=== PATIENT | female | born 1970 | race Two or more races ===

== ENCOUNTER 2019-06-23 23:02 | Emergency (ER) | payer MEDICAID ==
[~2019-06-23] VITALS: Ht 165.1 cm; Wt 83.9 kg
--- NOTE | 2019-06-23 23:20 | NUR ---
ED Nurse Note: Pt walked in to ER due to left ankle pain s/p fall. Pt stated she was walking and rolled her ankled inwards on 06/18. Pt stated 02/02 pain. LT ankle swollen, bruised, pain on touch. No SOB. VSS. Accompanied by .
--- NOTE | 2019-06-24 00:15 | NUR ---
ED Nurse Note: Xray done at bedside.
--- NOTE | 2019-06-24 01:06 | Diagnostic Imaging Report ---
Indication: Foot pain Comparison: None Findings: 3 views of the left foot were obtained. No acute fractures, malalignment, erosions or periostitis are identified. Soft tissues are unremarkable. Impression: No acute findings
--- NOTE | 2019-06-24 01:06 | Diagnostic Imaging Report ---
Indication: left ankle pain Comparison: None Findings: 3 views of the left ankle obtained. Soft tissues are unremarkable. No acute fracture, malalignment, periostitis, or osteochondral defects are identified. There is a plantar calcaneal spur present. Impression: No acute findings
[2019-06-24] MEDS ORDERED: NAPROXEN250 MG ORAL (01:27)
--- NOTE | 2019-06-24 01:27 | Emergency Room Report ---
History of Present Illness General Chief Complaint: Lower Extremity Injury Source: Patient Present Illness HPI 48-year-old female presents with sharp ankle pain after stepping in a pothole, she endorses pain with movement alleviated with rest severity is mild, intermittent patient had difficulty ambulating Allergies: Coded Allergies: No Known Allergies (Unverified , 06/23/19) Patient History Past Medical History: see triage record Last Menstrual Period: 4 months ago Reviewed Nursing Documentation: PMH: Agreed; PSxH: Agreed Nursing Documentation-PMH Past Medical History: No Stated History Review of Systems All Other Systems: negative except mentioned in HPI Physical Exam Vital Signs Date Time Temp Pulse Resp B/P (MAP) Pulse Ox O2 Delivery O2 Flow Rate FiO2 06/23/19 23:12 98.4 60 16 122/74 (90) 98 Room Air General Appearance: well appearing, no apparent distress Head: normocephalic, atraumatic ENT: hearing grossly normal, normal voice Neck: full range of motion, supple Respiratory: no respiratory distress, speaking full sentences Musculoskeletal: other - Left lower extremity: 2+ PT DP fires EHL, 5 out of 5 plantar dorsiflexion of the left foot, tenderness to palpation left lateral malleolus, minimal swelling Neurologic: alert, normal gait Psychiatric: mood/affect normal Skin: no rash Medical Decision Making Diagnostic Impression: Primary Impression: Ankle sprain Qualified Codes: S93.402A - Sprain of unspecified ligament of left ankle, initial encounter ER Course Patient most likely with a left ankle sprain versus contusion versus fracture X-rays negative, patient was given Adonay wrap, and crutches Follow-up with Ortho Preliminary Findings Only See Final Report For Complete Findings FILM LEFT FOOT: No acute fracture or subluxation. Radiologist: Renato Barber MD Study ready at 00:50 and initial results transmitted at 01:04 Preliminary Findings Only See Final Report For Complete Findings FILM LEFT ANKLE: No acute fracture or subluxation. Radiologist: Renato Barber MD Study ready at 00:50 and initial results transmitted at 01:05 Last Vital Signs Date Time Temp Pulse Resp B/P (MAP) Pulse Ox O2 Delivery O2 Flow Rate FiO2 06/23/19 23:12 98.4 60 16 122/74 (90) 98 Room Air Disposition: HOME, SELF-CARE Condition: Stable Scripts Naproxen* (NAPROSYN*) 250 Mg Tablet 250 MG ORAL BID PRN for For Pain, #20 TAB 0 Refills Prov: Red Fuentes MD 06/24/19 Referrals: NON PHYSICIAN (PCP) [facility]opedic [facility] Patient Instructions: Ankle Sprain Additional Instructions: The patient was provided with discharge instructions, notified to follow-up with a primary care doctor and or specialist in the next 24-48 hours, and to return to the ED if they have worsening of their symptoms. Please note that this report is being documented using [employer] technology. This can lead to erroneous entry secondary to incorrect interpretation by the dictating instrument. Red Fuentes MD Jun 24, 2019 01:27
[2019-06-24 01:30] VITALS: BP 125/80
--- NOTE | 2019-06-24 01:30 | NUR ---
ED Nurse Note: Pt cleared by ERMD for discharge. DC instructions/prescription was given and explained to pt and verbalized understanding of teachings. All medical deviecs such as ID band removed. Pt is AAO x4, ambulatory and left with all personal belongings. Accompanied by .
== END 2019-06-24 01:30 | disposition home or self-care (01) ==
LOC: EMR 23:30
DX: S93.402A Sprain of unspecified ligament of left ankle, initial encounter (principal); X50.1XXA Overexertion from prolonged static or awkward postures, initial encounter; Y92.410 Unspecified street and highway as the place of occurrence of the external cause
CPT/HCPCS: 73610; 73630; Z7502; 99283